=== PATIENT | male | born 1985 | race Caucasian/White ===

== ENCOUNTER 2016-09-08 23:32 | Emergency (ER) | payer OTHER ==
[2016-09-08 23:40] VITALS: TEMP 98.1; BMI 32.8
--- NOTE | 2016-09-09 00:15 | PDOC ---
History of Present Illness <Raj Delgado - Last Filed: 09/09/16 00:58> - History of Present Illness Initial Comments: 09/09/16 01:25 Patient is a 31 year old male with no significant medical hx who is presenting to the ED with a transient episode of chest pain one hour [employer]. 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 He reports first developing a tingling sensation that was diffusely all over his body and then began having chest pain. The patient reports his chest pain was centralized , non-radiating, and described as dull. The patient also endorses some shortness of breath and states he had to roll down his windows to catch his breath. The patient states he feels fine now and offers no complaints at this time. He reports having similar symptoms in the past when he was 200lbs overweight. Denies any palpitations, diaphoresis, cough, fevers, chills, nausea, vomiting, diarrhea, neck pain, or back pain. No family history of cardiac disease. Pt states he has only been sleeping ~5 hrs / night recently. Social Hx: Denies smoking, drug use, etoh abuse. Family hx: Denies hx of cad Surgical Hx: Gastric bypass (2015) <Zoya Trent - Last Filed: 09/09/16 01:27> - General Chief Complaint: Pain Stated Complaint: CHEST PAIN Time Seen by Provider: 09/09/16 00:08 Past History - Past Medical History Other medical history: Pt denies - Surgical History Gastric Stapling: Yes (Gastric bypass ) - Psycho/Social/Smoking Cessation Hx Suicidal Ideation: No Smoking History: Never smoked Information on smoking cessation initiated: No Hx Alcohol Use: No Drug/Substance Use Hx: No Substance Use Type: None <Raj Delgado - Last Filed: 09/09/16 00:58> <Zoya Trent - Last Filed: 09/09/16 01:27> - Past Medical History Allergies/Adverse Reactions: Allergies Allergy/AdvReac Type Severity Reaction Status Date / Time No Known Allergies Allergy Verified 09/08/16 23:38 Review of Systems - Review of Systems Comments:: 09/09/16 01:26 CONSTITUTIONAL: No reported: Fever, Chills, Diaphoresis, Generalized Weakness, Malaise, Loss of Appetite HEENT: No reported: Rhinorrhea, Nasal Congestion, Throat Pain, Throat Swelling, Difficulty Swallowing, Mouth Swelling, Ear Pain, Eye Pain, Visual Changes CARDIOVASCULAR: Reported: Chest Pain No reported: Syncope, Palpitations, Irregular Heart Rate, Lightheadedness, Peripheral Edema RESPIRATORY: Reported: Shortness of Breath No reported: Cough, SOB with Exertion, Orthopnea, Wheezing, Stridor, Hemoptysis GASTROINTESTINAL: No reported: Abdominal pain, Abdominal Distension, Nausea, Vomiting, Diarrhea, Constipation, Melena, Hematochezia GENITOURINARY: No reported: Dysuria, Frequency, Urgency, Hesitancy, Flank Pain, Genital Pain MUSCULOSKELETAL: No reported: Myalgia, Arthralgia, Joint Swelling, Back pain, Neck Pain SKIN: No reported: Rash, Itching, Pallor HEMEATOLOGIC/IMMUNOLOGIC: No reported: Easy Bleeding, Easy Bruising, Lymphadenopathy, Frequent infections ENDOCRINE: No reported: Unexplained Weight Gain, Unexplained Weight Loss, Heat Intolerance , Cold Intolerance NEUROLOGIC: No reported: Headache, Focal Weakness, Paresthesias, Vertigo, Lightheadedness, Unsteady Gait, Seizure, Mental Status Changes, Incontinence PSYCHIATRIC: No reported: Anxiety, Depression <Zoya Trent - Last Filed: 09/09/16 01:27> *Physical Exam - Vital Signs Last Vital Signs Temp Pulse Resp BP Pulse Ox 98.1 F 71 20 126/70 100 09/08/16 23:38 09/08/16 23:38 09/08/16 23:38 09/08/16 23:38 09/08/16 23:38 <DannyRaj - Last Filed: 09/09/16 00:58> - Vital Signs Last Vital Signs Temp Pulse Resp BP Pulse Ox 98.1 F 71 20 126/70 100 09/08/16 23:38 09/08/16 23:38 09/08/16 23:38 09/08/16 23:38 09/08/16 23:38 - Physical Exam Comments: 09/09/16 01:27 GENERAL: The patient is awake, alert, and fully oriented, Nontoxic - in no acute distress. HEAD: Normocephalic, atraumatic. EYES: extraocular movements intact, sclera anicteric, conjunctiva clear. ENT: Normal voice, Moist mucous membranes. NECK: Normal range of motion, supple LUNGS: Breath sounds equal, clear to auscultation bilaterally. No wheezes, no rhonchi, no rales. HEART: Regular rate and rhythm, normal S1 and S2 without murmur, rub or gallop. ABDOMEN: Soft, nontender, normoactive bowel sounds. No guarding, no rebound. . No CVA tenderness EXTREMITIES: Normal range of motion, no edema. No clubbing or cyanosis. No cords, erythema, or tenderness. NEUROLOGICAL: No facial assymetry, Normal speech, PSYCH: Normal mood, normal affect. SKIN: Warm, Dry, normal turgor <Zoya Trent - Last Filed: 09/09/16 01:27> Heart Score/ECG Review - ECG Impressions Comment:: 09/09/16 00:34 Twelve-lead EKG was performed and reviewed by me. There is normal sinus rhythm with a normal rate. Rate of 76 The axis is normal. The intervals are normal. There is normal R wave progression There are no ST or T wave abnormalities. Impression: Normal twelve-lead EKG <Raj Delgado - Last Filed: 09/09/16 00:58> ED Treatment Course - RADIOLOGY Radiology Studies Ordered: Category Date Time Status CHEST PA & LAT [RAD] Stat Radiology 09/09/16 00:08 Ordered <Raj Delgado - Last Filed: 09/09/16 00:58> Medical Decision Making - Medical Decision Making 09/09/16 00:31 31y M hx of gastric bypass presents with a brief episode of chest pain .Pt states he was working when he developed a tingling sensation frm his top of his head to his arms/body, then he developed a mild chest pain lasting for about 45 min before resolving. pt denies any complaints currently, no associated exertional sypmtoms, sob, diaprhoesis, n/v. pts ekg unreamrakble here will ck cxr to ro ptx and other acute pathology A portion of this note was documented by scribe services under my direction. I have reviewed the details of the note, within reason, and agree with the documentation with the following case summary and management plan written by me <Raj Delgado - Last Filed: 09/09/16 00:58> *DC/Admit/Observation/Transfer - Discharge Dispostion Admit: No <Raj Delgado - Last Filed: 09/09/16 00:58> - Attestations Scribe Attestion: 09/09/16 01:27 Documentation prepared by Zoya Trent, acting as medical dosimetrist for Raj Delgado MD. <Zoya Trent - Last Filed: 09/09/16 01:27> Diagnosis at time of Disposition: Chest pain Qualifiers: Chest pain type: unspecified Qualified Code(s): R07.9 - Chest pain, unspecified - Discharge Dispostion Disposition: HOME Condition at time of disposition: Improved - Referrals Referrals: [facility] [Provider Group] - Patient Instructions Printed Discharge Instructions: DI for Atypical Chest Pain Additional Instructions: Return to the emergency department immediately with ANY new, persistent or worsening symptoms. You MUST call and follow up with your doctor tomorrow for further evaluation of your symptoms. Results were discussed with you. Please make sure your doctor reviews the results of your emergency evaluation. If you had any xrays during your visit, it was read preliminarily by myself, a Radiologist will review it and if there are any additional findings we will call you.
[2016-09-09 01:34] VITALS: BP 116/75; PULSE 63
--- NOTE | 2016-09-12 12:55 | EKG ---
Test Reason : Blood Pressure : / mmHG Vent. Rate : 076 BPM Atrial Rate : 076 BPM P-R Int : 160 ms QRS Dur : 100 ms QT Int : 378 ms P-R-T Axes : 070 043 039 degrees QTc Int : 425 ms NORMAL SINUS RHYTHM NORMAL ECG NO PREVIOUS ECGS AVAILABLE Confirmed by NICA GARCIA MD ([id number]) on 09/12/2016 12:54:38 PM Referred By: Confirmed By:NICA GARCIA MD
== END 2016-09-09 01:35 | disposition home or self-care (01) ==
LOC: JER 23:32
DX: R07.89 Other chest pain (principal)
CPT/HCPCS: 71020-TC; 93005; 93010; 99281-25